=== PATIENT | female | born 1935 | race Caucasian/White ===

== ENCOUNTER 2022-09-08 09:30 | Outpatient (RCR) | payer MEDICARE, OTHER, SELFPAY | END 2023-02-17 23:59 | disposition home or self-care (01) | PROVIDERS: PCP Family Medicine; Visit Provider Family Medicine | DX: R26.89 Other abnormalities of gait and mobility (principal); Z51.89 Encounter for other specified aftercare | CPT/HCPCS: 97110; 97112; 97161 ==